=== PATIENT | male | born 1975 | race Caucasian/White ===

== ENCOUNTER 2016-07-05 11:54 | Emergency (ER) | payer OTHER ==
[~2016-07-05] VITALS: Ht 167.6 cm; Wt 92.9 kg
[~2016-07-05 11:54] MED LIST: CHOLESTYRAMINE P4 GM PO; GERD MEDICINE
[2016-07-05] MEDS ORDERED: KEFLEX500 MG PO (14:37)
[2016-07-05 14:52] VITALS: BP 120/78
[2016-07-05] MEDS ORDERED: OMEPRAZOLE20 MG PO (14:52)
== END 2016-07-05 14:53 | disposition home or self-care (01) ==
LOC: EME 11:54
DX: S61.212A Laceration without foreign body of right middle finger without damage to nail, initial encounter (principal); W31.89XA Contact with other specified machinery, initial encounter; Z23 Encounter for immunization
CPT/HCPCS: 73140; 99281; 99284; S0020